=== PATIENT | female | born 1955 | race Caucasian/White ===

== ENCOUNTER 2019-02-03 13:56 | Emergency (ER) | payer OTHER ==
[2019-02-03] MEDS ORDERED: GENTAMICIN 0.3% OPHTHALMIC OINTMENT 3.5 GM/TUBE OS ONE (14:19)
[2019-02-03 14:24] VITALS: BP 127/72; PULSE 85; TEMP 97.3; BMI 29.7
[2019-02-03] MEDS ORDERED: FLUORESCEIN NA 1 EA STRIP ONE (14:27)
[2019-02-03] MEDS ORDERED: ERYTHROMYCIN 0.5% OPHTHALMIC OINTMENT 3.5 GM TUBE ONE (14:27)
[2019-02-03] MEDS ORDERED: TETRACAINE 0.5% OPHTH SOLN 2 ML BOTTLE ONE (14:27)
[2019-02-03] MEDS ORDERED: ERYTHROMYCIN 0.5% OPHTHALMIC OINTMENT 3.5 GM TUBE OS ONE (14:38)
--- NOTE | 2019-02-03 14:40 | PDOC ---
Documentation entered by Latasha Owens SCRIBE, acting as scribe for Seth Rodriguez MD. Seth Toscano MD: This documentation has been prepared by the Roman banerjee Aiswarya, SCRIBE, under my direction and personally reviewed by me in its entirety. I confirm that the documentation accurately reflects all work, treatment, procedures, and medical decision making performed by me. Attending Attestation - Resident Resident Name: InocencioAgnieszkayoly - ED Attending Attestation I have performed the following: I have examined & evaluated the patient, The case was reviewed & discussed with the resident, I agree w/resident's findings & plan, Exceptions are as noted - HPI HPI: 02/03/19 14:36 The patient is a 63 year old female, with a significant PMH of who presents to the emergency department with hypertension, hypercholesterolemia, celiac disease, MS, raynaud's syndrome, hypothyroidism, right sided optic neuritis, and rheumatoid arthritis who comes to the emergency department for left eye pain. The patient states she was cleaning her house when something went into her left eye. Patient endorses mild discomfort and irritation. Denies any redness or changes in vision. Trey any discharge. Denies sobs, lightheadedness or headaches. Allergies: NKDA Past surgical history: None reported Social history: None reported PCP:Ryan Avery - Physicial Exam PE: 02/03/19 14:37 GENERAL: Awake, alert, and fully oriented, in no acute distress HEAD: No signs of trauma EYES: PERRLA, EOMI without diplopia. Visual mi intact. Left eye conjunctiva mildly injected. No ciliary flush.Tetracaine and fluorescein instilled . No staining, abrasion or ulceration visualized. No foreign body. ENT: Auricles normal inspection, hearing grossly normal, nares patent, oropharynx clear without exudates. Moist mucosa NEUROLOGICAL: Cranial nerves II through XII grossly intact. Normal speech. SKIN: Warm, Dry, normal turgor, no rashes or lesions noted. - Medical Decision Making 02/03/19 14:24 Assessment: Irritant conjunctivitis Plan: Antibiotic ointment and patch overnight. Recheck territory sales representative in the morning if there are any residual symptoms, including redness, irritation or pain, swelling, or decreased vision. Patient has an territory sales representative whom she can contact, but if unavailable should return to the emergency room for recheck if symptomatic. She understands and agrees. Discharged in no significant pain or distress with friend, who is driving.
--- NOTE | 2019-02-03 14:42 | PDOC ---
History of Present Illness - General Chief Complaint: Foreign Body (FB) Stated Complaint: left eye pain Time Seen by Provider: 02/03/19 14:05 - History of Present Illness Initial Comments: 02/03/19 15:00 HPI: 63 y/o F with hx of HTN, HLD, celiac disease, MS, right optic neuritis (with chronic blindness), Raynuads, hypothyroidism, RA presenting with left eye pain. She was at home dusting when she felt a foreign body sensation and presented to the ED. Pain is localized to her left eye with some focal pain in the outer upper quadrant. She feels unable to open her eye. Denies any chemical product use. No radiation of pain. She denies blurriness, NULL, LH, syncope. PMHx: as noted above ROS: as noted SHx: Denies tobacco use; no alcohol use; no rec drugs Allergies: NKDA ROS: GENERAL/CONSTITUTIONAL: No fever or chills. No weakness. HEAD, EYES, EARS, NOSE AND THROAT: No change in vision. No ear pain or discharge. No sore throat. CARDIOVASCULAR: No chest pain or shortness of breath RESPIRATORY: No cough, wheezing, or hemoptysis. GASTROINTESTINAL: No nausea, vomiting, diarrhea or constipation. GENITOURINARY: No dysuria, frequency, or change in urination. MUSCULOSKELETAL: No joint or muscle swelling or pain. No neck or back pain. SKIN: No rash NEUROLOGIC: No headache, vertigo, loss of consciousness, or change in strength/ sensation. ENDOCRINE: No increased thirst. No abnormal weight change HEMATOLOGIC/LYMPHATIC: No anemia, easy bleeding, or history of blood clots. ALLERGIC/IMMUNOLOGIC: No hives or skin allergy. PE: GENERAL: Awake, alert, and fully oriented, no acute distress HEAD: No signs of trauma, normocephalic, atraumatic EYES: EOMI, sclera anicteric, conjunctival injection, no hemorrhage, flourescein exam negative for globe rupture or corneal abrasion, visual acuity 20/40 in left eye which is her baseline, right eye with blindness ENT: Auricles normal inspection, hearing grossly normal, nares patent, oropharynx clear without exudates. Moist mucosa NECK: Normal ROM, no lymphadenopathy LUNGS: No increased work of breathing, symmetrical chest rise, clear to auscultation bilaterally, no wheezes, crackles or rhonchi HEART: Regular rate and rhythm, normal S1 and S2, no murmurs, peripheral pulses 2+ and equal bilaterally. ABDOMEN: Soft, nondistended, nontender, normoactive bowel sounds. No guarding, no rebound. No masses. No CVAT EXTREMITIES: Normal inspection, Normal range of motion, no edema. No clubbing or cyanosis. NEUROLOGICAL: Cranial nerves II through XII grossly intact. Normal speech, normal gait, no focal sensorimotor deficits SKIN: Warm, Dry, normal turgor, no rashes or lesions noted Past History - Past Medical History Allergies/Adverse Reactions: Allergies Allergy/AdvReac Type Severity Reaction Status Date / Time No Known Allergies Allergy Verified 04/29/11 17:29 Home Medications: Ambulatory Orders Bupropion HCl [Wellbutrin Xl -] 150 mg PO DAILY 08/06/14 Rosuvastatin Calcium [Crestor] 5 mg PO DAILY 08/06/14 Synthroid 1 tab PO DAILY 02/03/19 Valsartan/Hydrochlorothiazide [Valsartan-Hctz 160-12.5 mg Tab] 1 each PO DAILY 02/03/19 Cardiac Disorders: Yes (IRRIG HR) COPD: No Disorders: Yes (SEPSIS UTI) HTN: Yes Hypercholesterolemia: Yes Thyroid Disease: Yes - Surgical History Cholecystectomy: Yes - Immunization History Immunization Up to Date: Yes - Psycho Social/Smoking Cessation Hx Smoking Status: No Smoking History: Never smoked Have you smoked in the past 12 months: No Number of Cigarettes Smoked Daily: 0 Information on smoking cessation initiated: No Hx Alcohol Use: No Drug/Substance Use Hx: No *Physical Exam - Vital Signs Last Vital Signs Temp Pulse Resp BP Pulse Ox 97.3 F L 85 20 127/72 99 02/03/19 13:57 02/03/19 13:57 02/03/19 13:57 02/03/19 13:57 02/03/19 13:57 ED Treatment Course - Medications Given in the ED: ED Medications Discontinued Medications Generic Name Dose Route Start Last Admin Trade Name Freq PRN Reason Stop Dose Admin Gentamicin Sulfate 1 applic 02/03/19 14:19 02/03/19 14:31 Gentamicin 0.3% Eye Ointment - OS 02/03/19 14:20 1 applic ONCE ONE Administration Medical Decision Making - Medical Decision Making 02/03/19 15:09 63 y/o F with hx of HTN, HLD, celiac disease, MS, right optic neuritis (with chronic blindness), Raynuads, hypothyroidism, RA presenting with left eye foreign body sensation and pain. VSS, AF. PE unremarkable; flourescein exam negative with no evidence of globe rupture, no foreign body, no corneal abrasion -tetracaine -erythromycin ointment -eye patch with pcxns discussed; patient to followup with eye doc; return to ED if worsening symptoms Discharge - Discharge Information Problems reviewed: Yes Clinical Impression/Diagnosis: Left eye pain Condition: Improved Disposition: HOME - Follow up/Referral - Patient Discharge Instructions Patient Printed Discharge Instructions: DI for Eye Pain Additional Instructions: Please maintain eye patch once at home to rest eyes. Administer 2nd dose of erythromycin ointment prior to bed Avoid chemical irritants or rubbing your eyes Followup with your eye doctor within 48 hours If symptoms worsen or you have loss of vision, return to the ED for further evaluation - Post Discharge Activity
== END 2019-02-03 14:50 | disposition home or self-care (01) ==
LOC: FER 13:56
DX: H10.12 Acute atopic conjunctivitis, left eye (principal); I10 Essential (primary) hypertension; E78.00 Pure hypercholesterolemia, unspecified; E03.9 Hypothyroidism, unspecified; K90.0 Celiac disease; I73.00 Raynaud's syndrome without gangrene; M06.9 Rheumatoid arthritis, unspecified; H46.8 Other optic neuritis; H54.61 Unqualified visual loss, right eye, normal vision left eye
CPT/HCPCS: 99281-25

== ENCOUNTER 2019-03-08 22:55 | Emergency (ER) | payer OTHER ==
[2019-03-08 23:05] VITALS: BP 151/93; PULSE 80; TEMP 97.5; BMI 30.7
--- NOTE | 2019-03-08 23:11 | PDOC ---
History of Present Illness - General Chief Complaint: Injury Stated Complaint: INJURY Time Seen by Provider: 03/08/19 23:03 History Source: Patient Exam Limitations: No Limitations - History of Present Illness Initial Comments: 03/08/19 23:26 This is a 63-year-old female who comes in complaining of lost her balance and fell. Patient states she has early Parkinson's disease and sometimes she just loses her balance and falls. Patient said she did not sleep she did not pass out. Patient hit her forehead and does have a contusion and abrasion to the forehead. Patient otherwise is complaining of pain in her left hand over her fifth finger. Patient denies any loss of consciousness. Patient last tetanus is unknown. Patient denies any neck pain, chest pain abdominal pain pelvic pain or extremity pain with the exception of the left hand. Allergies: as per nursing notes Past Medical History: Parkinson's Social history: Lives with family. No smoking. No alcohol. No illicit drugs. Surgical history: None General: No fevers or chills, no weakness, no weight loss, fall HEENT: No change in vision. No sore throat,. No ear pain, forehead abrasion CardioVascular: no chest discomfort. No shortness of breath Respiratory:No cough, or wheezing. Gastrointestinal: no nausea, vomiting, diarrhea or constipation, No rectal bleeding Genitourinary: No dysuria, hematuria, or frequency Musculoskeletal: No joint or muscle pain or swelling, left hand pain Neurologic: No headache, vertigo, dizziness or loss of consciousness Psychiatric: nor depression Skin: No rashes or easy bruising Endocrine: no increased thirst or abnormal weight change Allergic: no skin or latex allergy All other systems reviewed and normal Exam: General: Well-nourished well-developed individual, no acute distress HEENT: Throat: Normal, tonsils normal, no erythema or exudate Head: There is a contusion and abrasion of the forehead. There is no active bleeding at this time Neck: Supple, no meningeal signs, no lymphadenopathy no cervical spine tenderness on palpation Eyes::Pupils equal reactive and round, extraocular motion intact Chest: Nontender to palpation Cardiac: S1-S2 normal, regular rate and rhythm, no murmurs rubs or gallops Respiratory: Lungs clear to auscultation bilateral Abdomen: Soft, nondistended, normal bowel sounds, there is no tenderness on palpation diffusely Extremities: Warm, dry, no cyanosis, clubbing, or edema, left hand there is some mild swelling however patient's hand does have a moderate amount of arthritis so it is difficult to tell which is baseline which is not. However there is some tenderness over the fifth metacarpal. Neurovascular is intact. Skin: No rashes Neuro: Alert and oriented x3, CN II - XII intact, nonfocal exam with normal strength, normal sensation, normal reflexes, normal gait, Psych: Normal mood and affect Assessment and plan: X-rays were done including head CT and x-rays of the left hand. Patient discharged we will follow-up with her primary care doctor 03/08/19 23:54 X-ray reviewed by me no acute fracture dislocation of the left hand Past History - Past Medical History Allergies/Adverse Reactions: Allergies Allergy/AdvReac Type Severity Reaction Status Date / Time No Known Allergies Allergy Verified 04/29/11 17:29 Home Medications: Ambulatory Orders Bupropion HCl [Wellbutrin Xl -] 150 mg PO DAILY 08/06/14 Rosuvastatin Calcium [Crestor] 5 mg PO DAILY 08/06/14 Synthroid 1 tab PO DAILY 02/03/19 Valsartan/Hydrochlorothiazide [Valsartan-Hctz 160-12.5 mg Tab] 1 each PO DAILY 02/03/19 Cardiac Disorders: Yes (IRRIG HR) COPD: No Disorders: Yes (SEPSIS UTI) HTN: Yes Hypercholesterolemia: Yes Thyroid Disease: Yes - Surgical History Cholecystectomy: Yes - Immunization History Immunization Up to Date: Yes - Psycho Social/Smoking Cessation Hx Smoking Status: No Smoking History: Never smoked Have you smoked in the past 12 months: No Number of Cigarettes Smoked Daily: 0 Hx Alcohol Use: No Drug/Substance Use Hx: No Discharge - Discharge Information Problems reviewed: Yes Clinical Impression/Diagnosis: Contusion of left hand Qualifiers: Encounter type: initial encounter Qualified Code(s): S60.222A - Contusion of left hand, initial encounter Forehead contusion Qualifiers: Encounter type: initial encounter Qualified Code(s): S00.83XA - Contusion of other part of head, initial encounter Abrasion of forehead Qualifiers: Encounter type: initial encounter Qualified Code(s): S00.81XA - Abrasion of other part of head, initial encounter Condition: Stable Disposition: HOME - Admission No - Follow up/Referral Referrals: Hadi,[place], MD [Primary Care Provider] - - Patient Discharge Instructions Additional Instructions: For the pain take Tylenol 1000 mg as often this 3-4 times a day if needed. Someone to check on you once tonight during the night. You should be arousable to their normal level of arousability for that time of the night. If you have been vomiting, had a seizure, or you are unable to be aroused or there is a change in your mental status call 911 go back to the nearest emergency department. Take Tylenol as needed for pain. Followup with your primary care doctor Return to the emergency department immediately with ANY new, persistent or worsening symptoms. Continue any medications as previously prescribed by your physician. You should follow up with your primary doctor as soon as possible regarding today's emergency department visit. . Please make sure your doctor reviews the results of your emergency evaluation. Thank you for coming to the Emergency Department today for your care. It was a pleasure to see you today. Please note that your evaluation is INCOMPLETE until you follow-up with your doctor. - Post Discharge Activity
[2019-03-08] MEDS ORDERED: DIPHTH,PERTUSS(ACELL),TET 0.5 ML DISP.SYRIN IM ONE ×2 (23:25→23:40)
[2019-03-09] MEDS ORDERED: ACETAMINOPHEN 500 MG TABLET (FP) PO ONE (00:11)
[2019-03-09] MEDS ORDERED: ACETAMINOPHEN 500 MG TABLET (FP) ONE (00:21)
== END 2019-03-09 00:41 | disposition home or self-care (01) ==
LOC: FER 22:55
PROC: 3E0234Z Introduction of Serum, Toxoid and Vaccine into Muscle, Percutaneous Approach (ICD-10-PCS; principal; 2019-03-08)
DX: S00.83XA Contusion of other part of head, initial encounter (principal); S60.222A Contusion of left hand, initial encounter; S00.81XA Abrasion of other part of head, initial encounter; G20 Parkinson's disease; I10 Essential (primary) hypertension; E78.00 Pure hypercholesterolemia, unspecified; W18.39XA Other fall on same level, initial encounter; Z91.81 History of falling; Y93.89 Activity, other specified; Y92.89 Other specified places as the place of occurrence of the external cause
CPT/HCPCS: 70450-TC; 73130-TC-LT-FY; 90715; 99282-25

== ENCOUNTER 2021-05-06 14:36 | Emergency (ER) | payer OTHER ==
[2021-05-06] MEDS ORDERED: ACETAMINOPHEN 500 MG TABLET (FP) PO ONE (14:58)
[2021-05-06] MEDS ORDERED: KETOROLAC TROMETHAMINE 30 MG/1 ML VIAL IM ONE (14:58)
[2021-05-06] MEDS ORDERED: ACETAMINOPHEN 500 MG TABLET (FP) ONE (15:05)
[2021-05-06] MEDS ORDERED: KETOROLAC TROMETHAMINE 30 MG/1 ML VIAL ONE (15:05)
[2021-05-06 15:08] VITALS: BP 126/70; PULSE 76; TEMP 98.5; BMI 34.3
== END 2021-05-06 16:28 | disposition home or self-care (01) ==
LOC: FER 14:36
PROC: 3E0233Z Introduction of Anti-inflammatory into Muscle, Percutaneous Approach (ICD-10-PCS; principal; 2021-05-06)
DX: M25.552 Pain in left hip (principal)
CPT/HCPCS: 72192-TC; 99284-25

== ENCOUNTER 2021-05-15 21:27 | Emergency (ER) | payer OTHER ==
[2021-05-15] MEDS ORDERED: ONDANSETRON 4 MG/2 ML VIAL IVPB ONE (21:49)
[2021-05-15] MEDS ORDERED: SODIUM CHLORIDE 1,000 ML ONE (21:49)
[2021-05-15 21:51] VITALS: BP 104/67; PULSE 67; BMI 34.1
[2021-05-15] MEDS ORDERED: ONDANSETRON 4 MG/2 ML VIAL ONE (21:56)
[2021-05-15 22:21] VITALS: TEMP 97.7
[2021-05-15 22:23] LABS: ALBUMIN 4.2 g/dl (3.4-5.0); BILIRUBIN,TOTAL 0.8 mg/dl (0.2-1); CALCIUM 9.6 mg/dl (8.5-10); CREATININE 1.4 mg/dl (0.55-1.3); TOT PROT 7.5 g/dl (6.4-8.2)
[2021-05-15 22:40] LABS: HEMATOCRIT 42.8 % (32.4-45.2); HEMOGLOBIN 14.5 GM/dL (10.7-15.3); MCH 31.4 pg (25.7-33.7); MCHC 33.9 g/dl (32.0-36.0); MEAN CELL VOLUME 92.7 fl (80-96); MEAN PLT VOLUME 7.4 fl (7.5-11.1); PLATELET COUNT 408 10^3/uL (134-434); RBC 4.62 M/mm3 (3.60-5.2); RDW 14.4 % (11.6-15.6); WHITE BLOOD COUNT 22.6 K/mm3 (4.0-10.0)
[2021-05-15] MEDS ORDERED: SODIUM CHLORIDE 1,000 ML IV ONE (22:59)
[2021-05-15 23:07] LABS: ANISOCYTOSIS 0; MACROCYTOSIS 0
[2021-05-15 23:09] LABS: EPITHELIAL CELLS FEW /hpf; URIC ACID CRYSTALS 1+ /hpf (NONE SEEN)
[2021-05-15] MEDS ORDERED: CEFTRIAXONE 1,000 MG in DEXTROSE 5%-WATER - 50 ML IVPB ONE (23:31)
[2021-05-15] MEDS ORDERED: cefTRIAXone SODIUM 1 GM VIAL ONE (23:32)
[2021-05-16] MEDS ORDERED: ONDANSETRON *ODT* 4 MG TABLET SL ONE (00:44)
[2021-05-16] MEDS ORDERED: ONDANSETRON *ODT* 4 MG TABLET ONE (00:45)
== END 2021-05-16 01:11 | disposition home or self-care (01) ==
LOC: FER 21:27
DX: K90.41 Non-celiac gluten sensitivity (principal)
CPT/HCPCS: 36415; 80053; 81003; 81015; 85025; 87086; 87186; 93005; 99284-25; Q0162

== ENCOUNTER 2021-08-15 09:50 | Emergency (ER) | payer OTHER ==
[2021-08-15 10:07] VITALS: TEMP 98.7; BMI 34.3
[2021-08-15] MEDS ORDERED: METOCLOPRAMIDE HCL INJECTION 10 MG/2 ML VIAL IVPUSH ONE (10:42)
[2021-08-15] MEDS ORDERED: MECLIZINE HCL 25 MG TABLET (FP) PO ONE (10:42)
[2021-08-15] MEDS ORDERED: METOCLOPRAMIDE HCL INJECTION 10 MG/2 ML VIAL ONE (10:52)
[2021-08-15] MEDS ORDERED: MECLIZINE HCL 25 MG TABLET (FP) ONE (10:53)
[2021-08-15] MEDS ORDERED: SODIUM CHLORIDE 500 ML IV STA (11:20)
[2021-08-15 11:38] LABS: HEMATOCRIT 34.8 % (32.4-45.2); HEMOGLOBIN 12.3 G/dL (10.7-15.3); MCH 31.6 pg (25.7-33.7); MCHC 35.5 g/dl (32.0-36.0); MEAN CELL VOLUME 89.2 fl (80-96); PLATELET COUNT 389.2 10^3/uL (134-434); RDW 14.3 % (11.6-15.6); WHITE BLOOD COUNT 8.2 10^3/uL (4.0-10.8)
[2021-08-15 11:47] LABS: ALBUMIN 3.5 g/dl (3.4-5.0); BILIRUBIN,TOTAL 0.5 mg/dl (0.2-1); CALCIUM 9.1 mg/dl (8.5-10); CREATININE 0.8 mg/dl (0.55-1.3); TOT PROT 6.5 g/dl (6.4-8.2)
[2021-08-15 12:44] VITALS: BP 147/69; PULSE 72
== END 2021-08-15 13:00 | disposition home or self-care (01) ==
LOC: FER 09:50
PROC: 3E033NZ Introduction of Analgesics, Hypnotics, Sedatives into Peripheral Vein, Percutaneous Approach (ICD-10-PCS; principal; 2021-08-15)
PROC: 3E0337Z Introduction of Electrolytic and Water Balance Substance into Peripheral Vein, Percutaneous Approach (ICD-10-PCS; 2021-08-15)
DX: R42 Dizziness and giddiness (principal)
CPT/HCPCS: 36415; 70450-TC; 80053; 85025; 93005; 99285-25; C9803-CS; U0003; U0005

== ENCOUNTER 2022-04-26 22:01 | Inpatient (IN) | payer OTHER ==
[2022-04-27 00:21] LABS: BASO % 1.1 % (0-2.0); EOS % 0.8 % (0-4.5); HEMATOCRIT 37.5 % (32.4-45.2); HEMOGLOBIN 13.1 GM/dL (10.7-15.3); LYMPH % 6.7 % (8-40); MCH 31.3 pg (25.7-33.7); MCHC 34.9 g/dl (32.0-36.0); MEAN CELL VOLUME 89.6 fl (80-96); MEAN PLT VOLUME 6.9 fl (7.5-11.1); MONO % 9.7 % (3.8-10.2); NEUT % 81.7 % (42.8-82.8); PLATELET COUNT 347 10^3/uL (134-434); RBC 4.18 M/mm3 (3.60-5.2); RDW 14.6 % (11.6-15.6); WHITE BLOOD COUNT 9.6 K/mm3 (4.0-10.0)
[2022-04-27 00:24] LABS: EPI CELLS >36 /uL (0-25.1); HYALINE CASTS 19 /uL (0-3.1); URINE APPEARANCE CLEAR; URINE BACTERIA 29 /uL (0-1359); URINE BILIRUBIN NEGATIVE (NEGATIVE); URINE COLOR YELLOW; URINE GLUCOSE (UA) NEGATIVE (NEGATIVE); URINE KETONE NEGATIVE (NEGATIVE); URINE LEUK ESTERASE 1+ (NEGATIVE); URINE NITRITE NEGATIVE (NEGATIVE); URINE PROTEIN NEGATIVE (NEGATIVE); URINE RBC 9 /uL (0-23.9); URINE UROBILINOGEN 0.2 mg/dL (0.2-1.0); URINE WBC 156 /uL (0-25.8)
[2022-04-27 00:31] LABS: INR 1.08 (0.83-1.09); PROTHROMBIN TIME (PATIENT) 12.5 SEC (9.7-13.0)
[2022-04-27] MEDS ORDERED: ONDANSETRON 4 MG/2 ML VIAL IVPUSH ONE (00:54)
[2022-04-27 01:27] LABS: CALCIUM 9.4 mg/dL (8.5-10.1)
[2022-04-27 01:28] LABS: BLOOD UREA NITROGEN 19.6 mg/dL (7-18)
[2022-04-27 01:32] LABS: BILIRUBIN,TOTAL 0.4 mg/dL (0.2-1); TOT PROT 7.1 g/dl (6.4-8.2)
[2022-04-27] MEDS ORDERED: SODIUM CHLORIDE 0.9% 500 ML INFUS.BAG IV ONE (01:34)
[2022-04-27 01:35] LABS: N-TERMINAL BNP 40.2 pg/ml (5-125)
[2022-04-27] MEDS ORDERED: CEFTRIAXONE 1,000 MG in DEXTROSE 5%-WATER - 50 ML IVPB ONE (01:45)
[2022-04-27] MEDS ORDERED: ONDANSETRON 4 MG/2 ML VIAL ONE ×2 (02:20→09:27)
[2022-04-27] MEDS ORDERED: CEFTRIAXONE 1 GM/50 ML BAG ONE (02:20)
[2022-04-27 06:52] LABS: BASO % 0.9 % (0-2.0); EOS % 2.3 % (0-4.5); HEMATOCRIT 35.4 % (32.4-45.2); HEMOGLOBIN 12.5 GM/dL (10.7-15.3); LYMPH % 15.1 % (8-40); MCH 31.7 pg (25.7-33.7); MCHC 35.3 g/dl (32.0-36.0); MEAN CELL VOLUME 89.8 fl (80-96); MEAN PLT VOLUME 7.4 fl (7.5-11.1); MONO % 11.2 % (3.8-10.2); NEUT % 70.5 % (42.8-82.8); PLATELET COUNT 316 10^3/uL (134-434); RBC 3.94 M/mm3 (3.60-5.2); RDW 14.3 % (11.6-15.6); WHITE BLOOD COUNT 7.4 K/mm3 (4.0-10.0)
[2022-04-27] MEDS ORDERED: LEVOTHYROXINE 112 MCG, LEVOTHYROXINE 25 MCG PO SCH (07:00)
[2022-04-27 07:17] LABS: CALCIUM 8.8 mg/dL (8.5-10.1)
[2022-04-27 07:18] LABS: ALBUMIN 3.6 g/dl (3.4-5.0); BLOOD UREA NITROGEN 17.3 mg/dL (7-18)
[2022-04-27 07:21] LABS: CREATININE 0.9 mg/dL (0.55-1.3)
[2022-04-27 07:22] LABS: BILIRUBIN,TOTAL 0.4 mg/dL (0.2-1)
[2022-04-27 07:23] LABS: TOT PROT 6.4 g/dl (6.4-8.2)
[2022-04-27] MEDS ORDERED: ONDANSETRON 4 MG/2 ML VIAL IVPUSH PRN (08:00)
[2022-04-27] MEDS ORDERED: VALSARTAN 80 MG TABLET ONE (09:16)
[2022-04-27] MEDS ORDERED: CEFUROXIME AXETIL 500 MG TABLET PO SCH (10:00)
[2022-04-27] MEDS ORDERED: VALSARTAN 160 MG TABLET PO SCH (10:00)
[2022-04-27] MEDS ORDERED: predniSONE 5 MG TABLET (UD) PO SCH (10:00)
[2022-04-27] MEDS ORDERED: ENOXAPARIN NA (PORCINE) 40 MG/0.4 ML DISP.SYRIN SQ SCH (10:00)
[2022-04-27] MEDS ORDERED: azaTHIOprine 50 MG TABLET PO SCH (10:00)
[2022-04-27 10:50] VITALS: TEMP 97.3
[2022-04-27 11:04] LABS: MAGNESIUM 1.8 mg/dL (1.8-2.4)
[2022-04-27 11:13] VITALS: BP 118/59; PULSE 61; RESP 18; BMI 37.8
[2022-04-27] MEDS ORDERED: MAGNESIUM SULF 50% (8.12 MEQ/2 ML-1 GM VIAL) IVPB ONE (11:31)
[2022-04-27] MEDS ORDERED: MAGNESIUM 1GM/D5W - 1 GM/100 ML IVPB IVPB ONE (11:35)
[2022-04-27] MEDS ORDERED: LATANOPROST 0.005% OPHTH SOLN 2.5ML BOTTLE OU SCH (22:00)
[2022-04-27] MEDS ORDERED: ROSUVASTATIN CA 5 MG TABLET PO SCH (22:00)
[2022-04-27] MEDS ORDERED: SERTRALINE HCL 50 MG TABLET (FP) PO SCH (22:00)
[2022-04-28] MEDS ORDERED: CEFTRIAXONE 1 GM in DEXTROSE 5%-WATER - 50 ML IVPB SCH (10:00)
== END 2022-04-27 13:20 | disposition home or self-care (01) | DRG 392 ==
LOC: JER 22:01 → JERBED 22:18 → OBSVTOIN 04-27 04:34
PROVIDERS: ADMIT Internal Medicine
DX: R11.2 Nausea with vomiting, unspecified (principal); N39.0 Urinary tract infection, site not specified; H46.9 Unspecified optic neuritis; E87.1 Hypo-osmolality and hyponatremia; R06.02 Shortness of breath; T48.6X5A Adverse effect of antiasthmatics, initial encounter; I10 Essential (primary) hypertension; E78.5 Hyperlipidemia, unspecified; E03.9 Hypothyroidism, unspecified; J44.9 Chronic obstructive pulmonary disease, unspecified; F32.A Depression, unspecified; I73.00 Raynaud's syndrome without gangrene; M06.9 Rheumatoid arthritis, unspecified; H40.9 Unspecified glaucoma; E86.9 Volume depletion, unspecified; K90.0 Celiac disease; R91.8 Other nonspecific abnormal finding of lung field; R94.31 Abnormal electrocardiogram [ECG] [EKG]
CPT/HCPCS: 36415; 71045-TC-FY; 80053; 81003; 82272; 83690; 83735; 83880; 84443; 84484; 85025; 85610; 85730; 87086; 93005; 93010; 99285-25; C9803-CS; G0378; U0003; U0005

== ENCOUNTER 2022-09-06 01:15 | Emergency (ER) | payer OTHER ==
[2022-09-06 01:23] VITALS: TEMP 97.7; BMI 41.3
[2022-09-06] MEDS ORDERED: LACTATED RINGERS SOLUTION 1000 ML INFUS.BAG IV ONE (01:26)
[2022-09-06] MEDS ORDERED: ONDANSETRON 4 MG/2 ML VIAL IVPUSH ONE (01:26)
[2022-09-06] MEDS ORDERED: ONDANSETRON 4 MG/2 ML VIAL ONE (01:37)
[2022-09-06 02:23] LABS: BASO % 0.6 % (0-2.0); EOS % 0.9 % (0-4.5); HEMATOCRIT 36.7 % (32.4-45.2); HEMOGLOBIN 12.4 GM/dL (10.7-15.3); LYMPH % 3.6 % (8-40); MCH 29.9 pg (25.7-33.7); MCHC 33.9 g/dl (32.0-36.0); MEAN CELL VOLUME 88.1 fl (80-96); MEAN PLT VOLUME 6.5 fl (7.5-11.1); MONO % 7.3 % (3.8-10.2); NEUT % 87.6 % (42.8-82.8); PLATELET COUNT 368 10^3/uL (134-434); RBC 4.16 M/mm3 (3.60-5.2); RDW 15.5 % (11.6-15.6); WHITE BLOOD COUNT 17.7 K/mm3 (4.0-10.0)
[2022-09-06 02:43] LABS: POTASSIUM 4.2 mmol/L (3.5-5.1)
[2022-09-06 02:46] LABS: ALBUMIN 3.5 g/dl (3.4-5.0); BLOOD UREA NITROGEN 21.9 mg/dL (7-18)
[2022-09-06 02:49] LABS: CREATININE 1.1 mg/dL (0.55-1.3)
[2022-09-06 02:51] LABS: BILIRUBIN,TOTAL 0.2 mg/dL (0.2-1); TOT PROT 6.6 g/dl (6.4-8.2)
[2022-09-06 03:55] VITALS: BP 157/86; PULSE 77; RESP 16
== END 2022-09-06 03:55 | disposition home or self-care (01) ==
LOC: JER 01:15
PROC: 3E033GC Introduction of Other Therapeutic Substance into Peripheral Vein, Percutaneous Approach (ICD-10-PCS; principal; 2022-09-06)
DX: R11.2 Nausea with vomiting, unspecified (principal); R53.1 Weakness; R42 Dizziness and giddiness; Z20.822 Contact with and (suspected) exposure to COVID-19
CPT/HCPCS: 0241U-QW; 36415; 71045-TC-FY; 80053; 84484; 85025; 93005; 93010; 99285-25

== ENCOUNTER 2024-07-29 12:34 | Emergency (ER) | payer OTHER ==
[2024-07-29 12:50] VITALS: BP 147/66; PULSE 75; RESP 16; TEMP 97.6; BMI 37.8
[2024-07-29] MEDS ORDERED: ACETAMINOPHEN 325 MG TABLET (FP) ONE (13:18)
[2024-07-29] MEDS: ACETAMINOPHEN 500 MG TABLET (FP) PO ONE (13:23)
[2024-07-29 13:42] LABS: PH,URINE 6.5 (5.0-8.0); URINE APPEARANCE CLEAR; URINE BILIRUBIN NEGATIVE (NEGATIVE); URINE COLOR YELLOW; URINE GLUCOSE (UA) NEGATIVE (NEGATIVE); URINE KETONE NEGATIVE (NEGATIVE); URINE LEUK ESTERASE NEGATIVE (NEGATIVE); URINE NITRITE NEGATIVE (NEGATIVE); URINE PROTEIN NEGATIVE (NEGATIVE)
== END 2024-07-29 16:29 | disposition home or self-care (01) ==
LOC: JER 12:34
DX: M25.561 Pain in right knee (principal)
CPT/HCPCS: 73562-TC-RT-FY; 81003; 87086; 99284-25

== ENCOUNTER 2025-01-09 17:01 | Emergency (ER) | payer OTHER ==
[2025-01-09 17:09] VITALS: TEMP 98.2; BMI 37.8
[2025-01-09 18:25] LABS: ABSOLUTE IMMATURE GRANULOCYTES 0.03 x10^3/uL (0.0-0.031); BASOPHILS # 0.07 x10^3/uL (0.01-0.08); EOSINOPHIL % 1.2 % (0.7-5.8); EOSINOPHILS # 0.09 x10^3/uL (0.04-0.36); MCHC 32.9 g/dl (32.2-35.5); MEAN CELL VOLUME 92.0 fl (79.4-94.8); MEAN PLT VOLUME 9.6 fl (9.4-12.3); MONOCYTE # 0.90 x10^3/uL (0.24-0.86); MONOCYTE % 11.7 % (4.7-12.5); RDW 13.3 % (12.4-16.6)
[2025-01-09 18:54] LABS: GLUCOSE,RANDOM 124.0 mg/dL (74-106); TOT PROT 6.8 g/dl (6.4-8.2)
[2025-01-09 18:55] LABS: CO2 20.0 mmol/L (21-32)
[2025-01-09 18:56] LABS: ALK PHOS 105.0 U/L (40-150)
[2025-01-09 18:59] LABS: CREATININE 0.99 mg/dL (0.55-1.3); SGOT/AST 49.0 U/L (5-34); SGPT/ALT 29.0 U/L (0-55)
[2025-01-09 19:02] LABS: URINE APPEARANCE CLEAR; URINE BILIRUBIN NEGATIVE (NEGATIVE); URINE COLOR YELLOW; URINE GLUCOSE (UA) NEGATIVE (NEGATIVE); URINE KETONE NEGATIVE (NEGATIVE); URINE LEUK ESTERASE NEGATIVE (NEGATIVE); URINE NITRITE NEGATIVE (NEGATIVE); URINE PROTEIN NEGATIVE (NEGATIVE); URINE UROBILINOGEN 0.2 mg/dL (0.2-1.0)
[2025-01-09 21:20] VITALS: BP 152/58; PULSE 76; RESP 17
== END 2025-01-09 21:20 | disposition home or self-care (01) ==
LOC: JER 17:01
DX: R53.83 Other fatigue (principal); R53.1 Weakness; R41.0 Disorientation, unspecified; R10.31 Right lower quadrant pain
CPT/HCPCS: 36415; 71045-TC-FY; 80053; 81003; 83735; 85025; 87086; 93005; 93010; 99285-25